=== PATIENT | male | born 1935 | race Caucasian/White ===

== ENCOUNTER 2016-06-28 14:31 | Inpatient (IN) | payer OTHER ==
[~2016-06-28] VITALS: Ht 180.3 cm; Wt 116.3 kg
--- NOTE | ~2016-06-28 | EKG ---
[address] [address] ELECTROCARDIOGRAM REPORT Name: TEAGAN HALL Room #: 458-P ADM IN M.R.#: [id number] Admission: 06/28/16 Attend Phys: Jamel Recio DO Discharge: Date of : 39 Report #: [id number] THIS REPORT FOR: //name// [facility] Test Date: 2016-06-29 Test Time: 14:42:36 Pat Name: TEAGAN HALL Department: Room: 458 P Gender: M Motion Picture Camera Operator: Alexsander MONREAL : 1935 Requested By: Sulma Sanz Order Number: [id number] MD: Harris Casey Measurements Intervals [place] Rate: 110 P: SD: QRS: 78 QRSD: 95 T: 26 QT: 355 QTc: 481 Interpretive Statements Atrial flutter Poor R wave progression nonspecific ST and T wave abnormality No previous ECG available for comparison Electronically Signed On 06-30-2016 9:25:49 AIRCRAFT AVIONICS TECHNICIAN by Harris Casey [email or web address] <ELECTRONICALLY SIGNED> By: Harris Casey MD, [facility] 06/30/16 0925 144 144 Harris Casey MD, FACC /EPI
[~2016-06-28 14:31] MED LIST: ACCUNEB SO1.25 MG/1 INH; ADVAIR 500-501 EACH INH; ADVAIRDISKUS; ALBUTEROL2.5 MG/31; ATIVAN1 MG PO; CARDIZEM; CARDIZEM CD120 MG PO; CARDURA4 MG PO; COLCHICINE0.6 MG PO; COMBIVENT; COMBIVENT RESPIM4 GM INH; COUMADIN; COUMADIN 3 MG TA3 M1 PO; COUMADIN 3 MG TA3 MG; COUMADIN 4 MG TA4 M1 PO; COUMADIN 5 MG TA5 M1 PO; COZAAR 50 MG TA50 M2 PO; DIOVAN; DIOVAN320 MG; DUONEB 2.5-0.5 M3 ML INH; FENTANYL PA25 MCG/HR TRANSDERM; FUROSEMIDE; HYDROCODON-ACE1 EAC1; HYDROCODON-ACE1 EACH; HYDROCODONE-AP1 EAC6 PO; IRON325 PO; LASIX 40 MG TAB40 M2 PO; LEVAQUIN 750 M750 MG PO; LOSARTAN; LOSARTAN POTAS100 MG PO; MIRALAX17 GM PO; NORCO 5-325 TA1 EACH PO; NORFLEX100 MG PO; PERCOCET 5-3251 EACH PO; PERCOCET PO; PRAVACHOL20 MG PO; PRAVASTATIN SOD20 MG PO; PREDNISONE; PREDNISONE 10 M10 M1 PO; PREDNISONE 20 M20 MG PO; PREDNISONE 5 MG5 M1 PO; PREDNISONE50 MG PO; PRILOSEC; PRILOSEC20 MG PO; PROBENECID500 MG PO; SENNA8.6 MG PO; SLOW-MAG64 M1 PO; TYLENOL325 MG PO; ULORIC40 MG PO; ZOCOR
[2016-06-28 15:21] VITALS: BP 141/74
[2016-06-28 18:47] LABS: HEMATOCRIT 41.7 % (42.0-52.0); HEMOGLOBIN 13.9 gm/dL (14.0-18.0); MCH 30.7 pg (26.0-34.0); MCHC 33.4 % (28.0-37.0); MCV 92.1 fL (80.0-100.0); PLATELET COUNT 167 thou/uL (150-400); RBC 4.53 mil/uL (4.50-6.00); RDW 13.9 % (10.5-14.5); WBC 6.5 thou/uL (4.0-11.0)
[2016-06-28 18:52] LABS: CALCIUM 9.2 mg/dL (8.5-10.1); CREATININE 1.3 mg/dL (0.6-1.3); POTASSIUM 4.6 mmol/L (3.5-5.1)
[2016-06-28 18:54] LABS: MANUAL DIFF YES
[2016-06-28 19:26] LABS: ABSOLUTE NEUTROPHILS 4.7 thou/uL (1.4-8.2); ANISOCYTOSIS 1+; TOTAL CELL COUNT 100
[2016-06-28 19:27] LABS: POLYCHROMASIA OCCASIONAL
[2016-06-28 19:42] VITALS: BP 142/69
[2016-06-29 04:39] VITALS: BP 152/53
[2016-06-29 07:45] VITALS: BP 170/82
[2016-06-29 12:00] VITALS: BP 138/66
[2016-06-29 16:00] VITALS: BP 153/72
[2016-06-29 20:00] VITALS: BP 153/68
[2016-06-30 04:00] VITALS: BP 156/74
[2016-06-30 07:32] VITALS: BP 141/71
[2016-06-30 11:24] VITALS: BP 110/73
[2016-06-30 16:26] VITALS: BP 152/70
[2016-06-30 20:31] VITALS: BP 147/57
[2016-07-01 04:10] VITALS: BP 146/58
[2016-07-01 07:23] VITALS: BP 141/81
[2016-07-01 11:20] VITALS: BP 150/84
[2016-07-01 15:49] VITALS: BP 152/71
[2016-07-01 18:40] LABS: INR 3.1; PROTIME 32.6 Seconds (9.3-11.4)
[2016-07-01 20:12] VITALS: BP 140/87
[2016-07-02 04:04] VITALS: BP 144/59
[2016-07-02 07:07] LABS: HEMATOCRIT 41.5 % (42.0-52.0); HEMOGLOBIN 13.4 gm/dL (14.0-18.0); MCH 30.3 pg (26.0-34.0); MCHC 32.3 % (28.0-37.0); MCV 93.8 fL (80.0-100.0); RBC 4.43 mil/uL (4.50-6.00); RDW 13.8 % (10.5-14.5); WBC 12.5 thou/uL (4.0-11.0)
[2016-07-02 07:18] LABS: ALBUMIN 3.8 g/dL (3.4-5.0); CALCIUM 8.8 mg/dL (8.5-10.1); CREATININE 1.5 mg/dL (0.6-1.3); MAGNESIUM 1.8 mg/dL (1.8-2.4); TOTAL BILIRUBIN 0.4 mg/dL (<0.1-1.0)
[2016-07-02 08:00] VITALS: BP 135/59
[2016-07-02 15:02] VITALS: BP 144/59
== END 2016-07-02 16:15 | disposition home or self-care (01) | DRG 177 ==
LOC: 4W 14:31
PROVIDERS: Family Medicine; Nurse Practitioner Family
DX: J69.0 Pneumonitis due to inhalation of food and vomit (principal); J96.01 Acute respiratory failure with hypoxia; J44.0 Chronic obstructive pulmonary disease with (acute) lower respiratory infection; J44.1 Chronic obstructive pulmonary disease with (acute) exacerbation; I48.91 Unspecified atrial fibrillation; I10 Essential (primary) hypertension; K21.9 Gastro-esophageal reflux disease without esophagitis; M10.9 Gout, unspecified; K59.00 Constipation, unspecified; F19.980 Other psychoactive substance use, unspecified with psychoactive substance-induced anxiety disorder; E78.5 Hyperlipidemia, unspecified; J45.909 Unspecified asthma, uncomplicated; E66.9 Obesity, unspecified; Z68.35 Body mass index [BMI] 35.0-35.9, adult; Z79.2 Long term (current) use of antibiotics; Z88.8 Allergy status to other drugs, medicaments and biological substances; Z87.891 Personal history of nicotine dependence; Z79.899 Other long term (current) drug therapy; Z98.49 Cataract extraction status, unspecified eye
CPT/HCPCS: 10045

== ENCOUNTER → 2019-03-10 | Outpatient (CLI) | payer OTHER | LOC: ULTRA 11:06 | DX: N63.10 Unspecified lump in the right breast, unspecified quadrant (principal) ==

== ENCOUNTER → 2020-06-24 | Outpatient (CLI) | payer OTHER ==
[~2020-06-24] MED LIST changes: +COMBIVENT INH; +WARFARIN SODIUM4 MG PO
== END ==
LOC: LAB 07:46
PROVIDERS: ATTEND Internal Medicine Gastroenterology
DX: Z01.812 Encounter for preprocedural laboratory examination (principal); Z20.822 Contact with and (suspected) exposure to COVID-19

== ENCOUNTER → 2020-06-29 | Outpatient (CLI) | payer OTHER ==
[~2020-06-29] VITALS: Ht 180.3 cm; Wt 68.0 kg
--- NOTE | 2020-07-01 16:06 | PATH ---
[facility] [address] [place] [address] PATHOLOGY RPT PROCEDURE Name: TEAGAN HALL Room #: REG Anette Bell.#: [id number] Admission: 06/29/20 Date of : 39 Discharge: Report #: [id number] Path Case #: [id number] LCA Accession Number: [id number] . 01 Material submitted: . PART A: gastrointestinal site - BX DUODENAL R/O CELIAC PART B: gastrointestinal site - BX ANTRUM R/O H.PYLORI PART C: gastrointestinal site - BX CECAL POLYP PART D: gastrointestinal site - BX ASCENDING POLYP X3 PART E: colon - BX SPLENIC FLEXURE X5 PART F: gastrointestinal site - BX RECTAL POLYP . 01 Clinical history: . DTS/EDG AND COLONOSCOPY ANEMIA;WEIGHT LOSS . 02 Diagnosis: A. Small bowel mucosa, duodenum R/O celiac, endoscopic biopsy: - No diagnostic abnormalities. - Negative for villous blunting or increase in intraepithelial lymphocytes. . B. Gastric mucosa, antrum, endoscopic biopsy: - Moderate reactive gastropathy. - Negative for intestinal metaplasia or atrophy. - Negative for Helicobacter pylori (properly controlled immunohistochemical stain performed). . C. Polyp, cecal polyp, endoscopic biopsy: - Tubular adenoma. - Negative for high-grade dysplasia. . D. Polyp x3, ascending colon polyp, endoscopic biopsy: - Multiple fragments showing tubular adenoma. - Negative for high-grade dysplasia. . E. Polyp x5, splenic flexure, endoscopic biopsy: - Tubular adenoma identified in multiple fragments; negative for high-grade dysplasia. - Two fragments showing hyperplastic polyp without any dysplasia. . F. Polyp, rectal polyp, endoscopic biopsy: - Hyperplastic polyp. - Negative for dysplasia. (IUV:radha; 07/01/2020) QMS 07/01/2020 1312 Local . [address] [address] PATHOLOGY RPT PROCEDURE Name: TEAGAN HALL Room #: REG CLI MJaspreet#: [id number] Admission: 06/29/20 Date of : 39 Discharge: Report #: [id number] Path Case #: [id number] Electronically signed: . Monisha Curtis MD, Pathologist NPI- [id number] . 01 Gross description: . A. The specimen is received in formalin, labeled "hannah Bhakta duodenal, R/O celiac". Received is a segment of pale carpio soft tissue measuring 0.5 cm in maximum dimensions. The specimen is submitted entirely in cassette A1. . B. The specimen is received in formalin, labeled "Teagan Hall, biopsy antrum, R/O H. pylori". Received is a segment of pale carpio soft tissue measuring 0.5 cm in maximum dimensions. The specimen is submitted entirely in cassette B1. . C. The specimen is received in formalin, labeled "Teagan Hall, biopsy cecal polyp". Received are two segments of pale carpio soft tissue measuring 0.6 cm each in maximum dimensions. The specimen is submitted entirely in cassette C1. . D. The specimen is received in formalin, labeled "Teagan Hall, ascending colon polyp x3". Received are three segments of pale carpio soft tissue ranging in size from 0.5 to 0.7 cm in maximum dimensions. The specimen is submitted entirely in cassette D1. . E. The specimen is received in formalin, labeled "Teagan Hall, biopsy splenic flexure x5". Received are five segments of pale carpio soft tissue ranging in size from 0.3 to 0.8 cm in maximum dimensions. The surgical margin of the larger segment is inked and the segment is bisected. The specimen is submitted entirely in cassette E1. . F. The specimen is received in formalin, labeled "Teagan Hall, biopsy rectal polyp". Received is a segment of pale carpio soft tissue measuring 0.3 cm in maximum dimensions. The specimen is submitted entirely in cassette F1. (CAA; 06/30/2020) QA/QA 06/30/2020 1042 Local . 02 Pathologist provided ICD-10: K31.9, D12.0, D12.2, D12.3, K62.1, Z12.11 . 02 CPT . 649829, 384349, 677416, 003725, 793968, 294832, O18306 Specimen Comment: A courtesy copy of this report has been sent to [phone] Specimen Comment: Report sent to Performed at: [address], [place], [place] [id number] [address] [address] PATHOLOGY RPT PROCEDURE Name: TEAGAN HALL Room #: REG CLI M.R.#: [id number] Admission: 06/29/20 Date of : 39 Discharge: Report #: [id number] Path Case #: [id number] MD Froilan Borges MD Phone: [phone] Performed at: [address] [id number] MD Monisha Curtis MD Phone: [phone]
== END | disposition home or self-care (01) ==
LOC: GI 07:56
PROVIDERS: ATTEND Internal Medicine Gastroenterology
DX: R63.4 Abnormal weight loss (principal); D12.0 Benign neoplasm of cecum; D12.2 Benign neoplasm of ascending colon; D12.3 Benign neoplasm of transverse colon; K62.1 Rectal polyp; K31.9 Disease of stomach and duodenum, unspecified; K57.30 Diverticulosis of large intestine without perforation or abscess without bleeding; K64.8 Other hemorrhoids; R12 Heartburn; K29.70 Gastritis, unspecified, without bleeding; K22.2 Esophageal obstruction; K44.9 Diaphragmatic hernia without obstruction or gangrene; I10 Essential (primary) hypertension; I48.91 Unspecified atrial fibrillation; J45.909 Unspecified asthma, uncomplicated; K21.9 Gastro-esophageal reflux disease without esophagitis; D64.9 Anemia, unspecified; Z98.890 Other specified postprocedural states; Z79.899 Other long term (current) drug therapy; Z87.891 Personal history of nicotine dependence
CPT/HCPCS: 62110; 62900

== ENCOUNTER 2020-08-09 09:21 | Inpatient (IN) | payer OTHER ==
[~2020-08-09] VITALS: Ht 152.4 cm; Wt 76.7 kg
[2020-08-09 09:22] VITALS: BP 130/57
[2020-08-09 10:45] LABS: URINE BILIRUBIN NEGATIVE (Negative); URINE BLOOD NEGATIVE (Negative); URINE CLARITY CLEAR; URINE COLOR YELLOW; URINE GLUCOSE-RANDOM* NEGATIVE (Negative); URINE KETONES NEGATIVE (Negative); URINE LEUKOCYTES-REFLEX NEGATIVE (Negative); URINE NITRITE-REFLEX NEGATIVE (Negative); URINE PROTEIN (DIPSTICK) NEGATIVE (Negative); URINE UROBILINOGEN 0.2 E.U./dl (0.2-1.0)
[2020-08-09 10:46] LABS: HEMATOCRIT 23.3 % (42.0-52.0); HEMOGLOBIN 7.8 gm/dL (14.0-18.0); MCH 32.1 pg (26.0-34.0); MCHC 33.4 g/dL (28.0-37.0); MCV 96.2 fL (80.0-100.0); PLATELET COUNT 301 thou/uL (150-400); RBC 2.42 mil/uL (4.50-6.00); WBC 8.9 thou/uL (4.0-11.0)
[2020-08-09 10:59] LABS: ANION GAP 8 mmol/L (7-16); BUN 18 mg/dL (7-18); CALCIUM 8.1 mg/dL (8.5-10.1); CHLORIDE 105 mmol/L (98-107); CO2 25 mmol/L (21-32); CREATININE 1.2 mg/dL (0.7-1.3); GLUCOSE 101 mg/dL (74-106); SODIUM 138 mmol/L (136-145)
[2020-08-09 11:10] LABS: ALBUMIN 2.6 g/dL (3.4-5.0); LIPASE 165 U/L (73-393); SGOT 17 U/L (15-37); SGPT 10 U/L (30-65); TOTAL BILIRUBIN 0.8 mg/dL (0.2-1.0); TOTAL PROTEIN 5.4 g/dL (6.4-8.2); TROPONIN-I <0.06 ng/mL (<0.06)
[2020-08-09 11:11] LABS: ABSOLUTE NEUTROPHILS 3.2 thou/uL (1.4-8.2); PLATELET ESTIMATE NORMAL
[2020-08-09 12:09] LABS: PROTIME 85.6 Seconds (9.3-11.4)
[2020-08-09 12:14] LABS: INR > 8.0
[2020-08-09 13:58] VITALS: BP 149/73
[2020-08-09 14:20] VITALS: BP 149/73
--- NOTE | 2020-08-09 15:57 | EKG ---
[address] [place] [address] ELECTROCARDIOGRAM REPORT Name: TEAGAN HALL Room #: 458-P ADM IN M.R.#: [id number] Admission: 08/09/20 Attend Phys: Jackie Vivar Discharge: Date of : 39 Report #: [id number] [facility] ED Test Date: 2020-08-09 Test Time: 10:33:14 Pat Name: TEAGAN HALL Department: Room: 458 Gender: M Sack Keeper: sathya : 1935 Requested By: Alberto Montano Order Number: [id number] MD: Omi Payan Measurements Intervals [place] Rate: 98 P: MA: QRS: 68 QRSD: 134 T: -4 QT: 419 QTc: 536 Interpretive Statements Atrial fibrillation Right bundle branch block Compared to ECG 06/29/2016 14:42:36 Right bundle-branch block now present Atrial flutter no longer present Poor R-wave progression no longer present ST (T wave) deviation no longer present Electronically Signed On 08-09-2020 15:57:32 JEWEL HOLE GAUGER by Omi Payan [email or web address] <ELECTRONICALLY SIGNED> By: Omi Payan MD, [facility] 08/09/20 1557 1033 1033 Omi Payan MD, [facility] /EPI
[2020-08-09 16:13] VITALS: BP 129/51
--- NOTE | 2020-08-09 19:23 | NUR ---
PT ARRIVED TO FLOOR FROMED AROUND 1500 IN STABLE CONDITION. ADMISSION HX, ASSESMENT,AND CARE PLAN COMPLETED WITH SOME OF THE QUESTIONS ANSWERED BY PT'S . PT WAS PLACED ON BOBTAILER. BOX LUNCH GIVEN AND WELL TOLERATED BY THE PT. PT'S DAUGHTER CALLED, BUT UNABLE TO HELP HER BECAUSE SHE DIDN'T HAVE A CODE NUMBER.PT IN BED RESTING AT PRESENT AND REPORT GIVEN TO SHREE RANGEL.
[2020-08-09 21:44] VITALS: BP 125/66
[2020-08-10 04:58] LABS: HEMATOCRIT 28.1 % (42.0-52.0); HEMOGLOBIN 9.1 gm/dL (14.0-18.0); MCH 31.7 pg (26.0-34.0); MCHC 32.5 g/dL (28.0-37.0); MCV 97.5 fL (80.0-100.0); RBC 2.88 mil/uL (4.50-6.00); RDW 16.4 % (10.5-14.5)
[2020-08-10 05:01] VITALS: BP 149/73
[2020-08-10 05:01] LABS: PROTIME 17.6 Seconds (9.3-11.4)
[2020-08-10 05:27] LABS: INR 1.7
[2020-08-10 08:15] VITALS: BP 148/68
[2020-08-10] MEDS ORDERED: BENADRYL ALLERG25 MG PO (10:53)
[2020-08-10 11:28] VITALS: BP 148/68
--- NOTE | 2020-08-10 12:18 | NUR ---
Assumed pt care at 7am.Pt in bed very restless and itching at alltimes. Repositioned pt in bed for comfort and benadryl iv and topical given as ordered.Assessment completed. vss.Dr Vivar here,dc order noted.Received call from pt's dtr,she wanted to discuss pt care optior with doctor prior to dc home today.Dr Vivar notified and he called pt dtr.Few minutes later,received call from Dr Vivar and jack pt to dc home after lyme disease serology draw. Pt and his notified.Dc summary completed and reviewed with pt and . Pt will be dc home after lunch.
--- NOTE | 2020-08-10 14:47 | NUR ---
PT ADMITTED RELATED TO ANEMIA,INCREASED INR. CM REVIEWED CHART AND SPOKE WITH CARE TEAM. CM MET WITH PT AT BEDSIDE THIS DAY. PT APPEARED TO BE A&O X4. CM ROLE INTRODUCED. PT INDICATED HE RESIDES IN A HOUSE WITH HIS WITH STAIR LIFTS. PT INDICATED HE HAD USED A CANE TO ASSIST WITH MOBILITY POMOLOGIST. PT INDICATED HE PLANS TO RETURN HOME ONCE MEDICALLY STABLE. CARE TEAM INDICATED THAT PT IS MEDICALLY STABLE TO DC HOME THIS DAY TO SELF CARE. PT'S SPOUSE TO PROVIDE TRNASPORT HOME. NO OTHER CM INTERVENTION INDICATED. CASE CLOSED.
[2020-08-11 18:06] LABS: LYME ANTIBODY SCREEN* <0.91 ISR (0.00-0.90)
== END 2020-08-10 13:35 | disposition home or self-care (01) | DRG 813 ==
LOC: ER 09:21 → 4W 13:52 → EROBS 13:52 → 4W 14:20
PROVIDERS: Emergency Medicine; ADMIT Hospitalist; ATTEND Hospitalist
DX: D68.9 Coagulation defect, unspecified (principal); E44.1 Mild protein-calorie malnutrition; L30.9 Dermatitis, unspecified; G89.29 Other chronic pain; I10 Essential (primary) hypertension; D64.9 Anemia, unspecified; J45.909 Unspecified asthma, uncomplicated; I48.91 Unspecified atrial fibrillation; R07.9 Chest pain, unspecified; K21.9 Gastro-esophageal reflux disease without esophagitis; Z79.01 Long term (current) use of anticoagulants; Z79.899 Other long term (current) drug therapy; Z88.8 Allergy status to other drugs, medicaments and biological substances; Z87.891 Personal history of nicotine dependence
CPT/HCPCS: 10047

== ENCOUNTER → 2020-10-21 | Outpatient (CLI) | payer OTHER ==
[~2020-10-21] MED LIST changes: +BENADRYL ALLERG25 MG PO
--- NOTE | 2020-10-29 11:04 | PATH ---
[facility] [address] [place] [address] PATHOLOGY RPT PROCEDURE Name: TEAGAN HALL Room #: REG CLAnette Bell.#: [id number] Admission: 10/21/20 Date of : 39 Discharge: Report #: [id number] Path Case #: [id number] LCA Accession Number: [id number] . 01 Material submitted: . lymph node - RIGHT INGUINAL LYMPH NODE BIOPSY. Modifiers: right, inguinal . 01 Clinical history: . RPMI ALLERGIC TO LISINOPRIL,ALLOPURINOL . 02 Diagnosis: Lymph node, right inguinal lymph node, needle core biopsy: - Findings compatible with a benign reactive lymph node, see comment. . (IUV:mml; 10/26/2020) QLM 10/26/2020 1553 Local . 02 Comment: Examination shows a needle core biopsy tissue with lymphoid follicles, germinal centers as well as fibrovascular connective tissue (comprises approximately 50% of the sampled tissue). Portion of this sample was sent to flow cytometric analysis which showed no specific lymphoid immunophenotypic abnormalities. A minute portion of CD10+ B-cells comprising approximately (1.6%) was noted. Analysis for B-cell light chains on those cells demonstrated polyclonality. Morphologically, the lymphoid cells appear small, no atypical markedly enlarged lymphoid cells, or Duy-Deb cells are identified. To further characterize the lymphoid cells in a tissue architectural context, multiple properly-controlled immunohistochemical stains are performed on block A1 and interpreted as follows: . CD20 - Reactive within B-cells in the germinal centers as well as the mantle zones CD3 - Reactive within the T-cells and interfollicular regions CD5 - Reactive within the T-cells in the interfollicular regions CD10 - Reactive within the B-cells in the germinal centers PAX-5 - Reactive within the B-cells in the germinal centers as well as the mantle zones BCL-6 - Reactive within the lymphocytes in the germinal centers BCL-2 - Germinal center/follicles are non-reactive CD23 - Reactive within the dendritic cell meshwork in the germinal centers MUM1 - Reactive within the scattered rare plasma cells Cyclin D1 - Non-reactive within the B-cells CD68 - Non-reactive . . [facility] [address] [place] [address] PATHOLOGY RPT PROCEDURE Name: TEAGAN HALL Room #: REG Anette Olivera#: [id number] Admission: 10/21/20 Date of : 39 Discharge: Report #: [id number] Path Case #: [id number] The immunohistochemical stains support a benign reactive lymph node. Please note sample may not be entirely cash applications representative; correlate clinically and follow up as indicated. . Dr. Santiago Messina has seen this case and concurs with my diagnosis. . (IUV:mml; 10/26/2020) . 02 Addendum: . Special studies report received from [facility], [address] [place] [address], [address], [place], [address], on case [id number], labeled with their number [id number], dated 10/25/2020. . Flow Cytometry: Hematologic Neoplasia Assessment . Clinical History . . Indication for Study Evaluation for hematolymphoid neoplasia . Specimen Tissue, Rt Inguinal LN . Viability 67% (7AAD exclusion) . Interpretation Tissue, Rt Inguinal LN: - No specific lymphoid immunophenotypic abnormalities detected - Elevated CD4/CD8 ratio (8.8:1), phenotypically unremarkable . Comments No immunophenotypic evidence of non-Hodgkin lymphoma, blastic cells or plasmacytoma is detected in this analysis. The only note worthy finding is the detection of a small population of CD10+ B-cells (1.6%). Analysis for B-cell light chains (surface and cytoplasmic) on these cells demonstrates evidence consistent with polyclonality. Some large cell lymphomas are prone to rapid degeneration which can render such lesions undetectable by flow cytometry. Also, Hodgkin lymphoma, some T cell lymphomas, and T-cell-rich B-cell lymphoma may not be detectable by flow cytometry. A thorough clinical, histologic and immunohistochemical correlation is recommended for full exclusion of non-hematolymphoid cellular processes, atypical lymphoid reactions, granulomatous disease or Hodgkin lymphoma. . Populations Analyzed Lymphocytes: 59% B-cells: 6.3%, polytypic/polyclonal sIg light chain [facility] [address] [place] [address] PATHOLOGY RPT PROCEDURE Name: TEAGAN HALL Room #: REG FARHEEN Olivera#: [id number] Admission: 10/21/20 Date of : 39 Discharge: Report #: [id number] Path Case #: [id number] pattern K/L= !.8:1). A small population of CD10+ B-cells (1.6%) is present. Analysis for B-cell light chains (surface and cytoplasmic) on these cells demonstrates evidence consistent with polyclonality T-cells: no significant abnormalities of the markers tested CD4:CD8: 8.8:1 (elevated) without increased CD38 NK cells: 0.8% Granulocytes: 3% Present and phenotypically mature neutrophils with approximately 2.1% eosinophils Monocytes/ 1% Present and phenotypically unremarkable for the Histiocytes: markers tested CD45 Negative 36% No significant reactivity with the markers tested Events/Debris: (may represent non-hematolymphoid cells, degenerated cells, debris, unlysed red blood cells, etc.) . Morphologic Evaluation A slide was reviewed for quality controller purposes only. . Specimen Description Cell Yield: 0.41 x 10 and 6 Viability is 67%. Flow cytometric data derived from samples with <80% viability needs to be interpreted within the context of all clinical, laboratory, and morphologic data available. . Pertinent Prior Test Results Received Date Test Type Specimen Type Result 06/18/2019 Flow Cytometry Tissue Result Number: [id number] Left Biceps: - No immunophenotypic evidence of a non Hodgkin B-cell or a T-cell lymphoma in a sample with markedly decreased viability (51%). See comments. . Reagent(s) Used CD2, CD3, CD4, CD5, CD7, CD8, CD10, CD11b, CD19, CD20, CD23, CD30, CD38, CD43, CD45, CD56, CD57, FMC-7, HLA-DR, kappa, lambda, CytoKappa, CytoLambda . at [employer] Sergio Butterfield MD Pathologist . . Intended Use [facility] [address] [place] [address] PATHOLOGY RPT PROCEDURE Name: TEAGAN HALL Room #: REG [facility].#: [id number] Admission: 10/21/20 Date of : 39 Discharge: Report #: [id number] Path Case #: [id number] Flow cytometry is optimally used to immunophenotypically characterize abnormal populations when they are detected. Negative flow cytometry results do not exclude lymphoma or neoplasia. Possible false negative flow cytometry results may occur in, but are not limited to, the following: neoplastic cells in Hodgkin lymphoma are not typically adequately represented by routine clinical flow cytometry; neoplastic cells may be lost or inadequately represented due to degeneration, sample processing, sampling artifact, or patchy involvement; plasma cells are typically underrepresented by flow cytometry; immature cells/blasts may be underrepresented due to hemodilution; myeloproliferative disorders and low grade myelodysplasia may not have immunophenotypic abnormalities or increased blasts. Correlation with all available clinical, laboratory, and morphologic data is always necessary to assess for the possibility of false negative flow cytometry results and to establish a diagnosis. Each marker in this analysis was used to assess for potential antigenic abnormalities or to evaluate detected abnormalities. . Any image or images that accompany this report are cash applications representative images only and should not be used to render a diagnosis. . Disclaimer(s) This test was developed and its performance characteristics determined by [employer] It has not been cleared or approved by the Food and Drug Administration. . [facility] is a business unit of [email or web address] a wholly-owned subsidiary of [employer]. . This test was performed at [facility]. at [address], [place], [address] - Computer Specialist: Kenan Poe MD. . For inquiries, the physician may contact Lab: [phone] . A complete copy of the report is on file. . Professional services performed by [facility]. at [address], [place] [address]. Technical services performed by [facility]. at [address], [place] [address]. . (IUV:amj 10/26/2020) . AZJ/10/28/2020 Addendum Electronically Signed by Monisha Curtis MD, Pathologist . [address] [address] PATHOLOGY RPT PROCEDURE Name: TEAGAN HALL Room #: REG CL Joselin#: [id number] Admission: 10/21/20 Date of : 39 Discharge: Report #: [id number] Path Case #: [id number] Electronically signed: . Monisha Curtis MD, Pathologist NPI- [id number] . 01 Gross description: . Received in formalin labeled "Teagan Hall and right inguinal node biopsy". Received are 2 lymph node core biopsies ranging from 1.0-1.0 cm in length and 0.1 cm in diameter. The specimen is entirely submitted in cassette A1.(J; 10/21/2020) BLJ/BLJ 10/21/2020 1936 Local . 02 Pathologist provided ICD-10: Z03.89 . 02 CPT . 699278, A12267, I36236 Specimen Comment: A courtesy copy of this report has been sent to [phone] Specimen Comment: Report sent to DR CURTIS / DR BERUMEN Specimen Comment: A duplicate report has been generated due to demographic updates. Performed at: [address], [place] [id number] MD Froilan Borges MD Phone: [phone] Performed at: [address] [id number] MD Monisha Curtis MD Phone: [phone]
== END | disposition home or self-care (01) ==
LOC: ULTRA 12:52
PROVIDERS: ATTEND Radiology Vascular & Interventional Radiology
DX: R59.0 Localized enlarged lymph nodes (principal); N28.9 Disorder of kidney and ureter, unspecified; I48.91 Unspecified atrial fibrillation; M10.9 Gout, unspecified; E66.01 Morbid (severe) obesity due to excess calories; Z98.890 Other specified postprocedural states; Z79.899 Other long term (current) drug therapy; Z79.01 Long term (current) use of anticoagulants

== ENCOUNTER → 2021-03-31 | Outpatient (CLI) | payer OTHER | LOC: CAT 11:49 | PROVIDERS: ATTEND Pediatrics | DX: J43.9 Emphysema, unspecified (principal); R91.8 Other nonspecific abnormal finding of lung field; J90 Pleural effusion, not elsewhere classified; K74.60 Unspecified cirrhosis of liver; R18.8 Other ascites; I25.10 Atherosclerotic heart disease of native coronary artery without angina pectoris; M47.814 Spondylosis without myelopathy or radiculopathy, thoracic region ==

== ENCOUNTER → 2021-05-13 | Outpatient (CLI) | payer OTHER | LOC: PET 04-15 14:00 | PROVIDERS: ATTEND Pediatrics | DX: S22.31XA Fracture of one rib, right side, initial encounter for closed fracture (principal); R91.8 Other nonspecific abnormal finding of lung field; J90 Pleural effusion, not elsewhere classified; X58.XXXA Exposure to other specified factors, initial encounter; Y93.89 Activity, other specified; Y92.89 Other specified places as the place of occurrence of the external cause; Y99.8 Other external cause status ==

== ENCOUNTER → 2021-06-24 | Outpatient (CLI) | payer OTHER | LOC: CAT 13:42 | PROVIDERS: ATTEND Pediatrics | DX: S22.41XA Multiple fractures of ribs, right side, initial encounter for closed fracture (principal); R91.1 Solitary pulmonary nodule; J90 Pleural effusion, not elsewhere classified; J43.8 Other emphysema; R18.8 Other ascites; X58.XXXA Exposure to other specified factors, initial encounter; Y93.89 Activity, other specified; Y92.89 Other specified places as the place of occurrence of the external cause; Y99.8 Other external cause status ==

== ENCOUNTER → 2021-07-08 | Outpatient (CLI) | payer OTHER | LOC: CAT 14:10 | PROVIDERS: ATTEND Pediatrics | DX: S22.41XA Multiple fractures of ribs, right side, initial encounter for closed fracture (principal); J98.11 Atelectasis; R18.8 Other ascites; J90 Pleural effusion, not elsewhere classified; I51.7 Cardiomegaly; X58.XXXA Exposure to other specified factors, initial encounter; Y93.89 Activity, other specified; Y92.89 Other specified places as the place of occurrence of the external cause; Y99.8 Other external cause status ==

== ENCOUNTER → 2021-08-01 | Outpatient (CLI) | payer OTHER ==
[~2021-08-01] VITALS: Ht 180.3 cm; Wt 109.3 kg
[~2021-08-01] MED LIST changes: +ALLOPURINOL 30300 M1 PO; -COMBIVENT INH; +DILTIAZEM 24HR120 M1 PO; +DOXAZOSIN MESYLA4 MG PO; +FENTANYL1 EAC7 TRANSDERM; +FUROSEMIDE 40 M40 M1 PO; +NORCO7.5 PO; +OMEPRAZOLE 20 M20 M1 PO; +RAYOS5 MG PO; +WARFARIN SODIUM2 MG PO; +WIXELA 500-501 EACH INH
[2021-08-01 09:55] VITALS: BP 143/92
[2021-08-01 10:15] LABS: CREATININE 1.2 mg/dL (0.7-1.3); POTASSIUM 4.5 mmol/L (3.5-5.1)
[2021-08-01 10:17] LABS: INR 1.17; PROTIME 12.7 Seconds (10.5-12.1)
--- NOTE | 2021-08-01 10:44 | EKG ---
[place] [address] [facility] [place] [address] ELECTROCARDIOGRAM REPORT Name: TEAGAN HALL [facility] [id number] Admission: 08/01/21 Attend Phys: Tyson Song MD Discharge: Date of : 39 Report #: [id number] [facility] Test Date: 2021-08-01 Test Time: 10:27:28 Pat Name: TEAGAN HALL Department: Room: Gender: M Alliance Manager: KEIRY : 1935 Requested By: Monik Jacobs Order Number: [id number] MD: Omi Payan Measurements Intervals [place] Rate: 61 P: MS: QRS: 61 QRSD: 124 T: -8 QT: 444 QTc: 448 Interpretive Statements Atrial fibrillation IVCD, consider atypical RBBB Compared to ECG 08/09/2020 10:33:14 No significant changes Electronically Signed On 08-01-2021 10:44:27 CUPOLA MELTER HELPER by Omi Payan [email or web address] <ELECTRONICALLY SIGNED> By: Omi Payan MD, [facility] 08/01/21 1044 1027 1027 Omi Payna MD, FACC /EPI
[2021-08-01 11:08] LABS: HEMATOCRIT 31.3 % (42.0-52.0); MCH 32.5 pg (26.0-34.0); MCV 101.5 fL (80.0-100.0); RBC 3.08 mil/uL (4.50-6.00); RDW 16.4 % (10.5-14.5); WBC 5.9 thou/uL (4.0-11.0)
--- NOTE | 2021-08-05 11:22 | PATH ---
[facility] [address] [place] [address] PATHOLOGY RPT PROCEDURE Name: TEAGAN HALL Room #: REG FARHEEN Bell.#: [id number] Admission: 08/01/21 Date of : 39 Discharge: Report #: [id number] Path Case #: [id number] Note LCA Accession Number: [id number] TESTS RESULT FLAG UNITS REF RANGE LAB Clinician Provided Cytology Information No. of containers..01 Other (Miscellaneous) Source: BRUSH TIP RUL DIAGNOSIS: 02 BRUSH TIP RUL INCONCLUSIVE. SCANT CELLULARITY. RARE ATYPICAL CELLS IDENTIFIED. NORMAL BRONCHIAL CELLS ARE PRESENT. ABUNDANT RED BLOOD CELLS ARE PRESENT. Signed out by: 02 Neftali Yang MD, Pathologist NPI- [id number] Performed by: Shital Hernandez, Aircraft Armorer ([facility]) Gross description: 01 20ML, CLEAR, COLORLESS /LCS 08/02/2021 1700 Local FLAG LEGEND: L-Low Normal,H-High Normal,LL-Alert Low,HH-Alert High <-Panic Low,>-Panic High,A-Abnormal,AA-Critical Abnormal Performed at: [address] [place] [address] Froilan Borges MD, [address] [place] [address] Neftali Yang MD, Specimen Comment: A courtesy copy of this report has been sent to [phone] Specimen Comment: [phone] Specimen Comment: Report sent to / DR PETTY Performed at: [address], [place], [place] [id number] MD Froilan Borges MD Phone: [phone]
--- NOTE | 2021-08-05 14:07 | PATH ---
[facility] [address] [place] [address] PATHOLOGY RPT PROCEDURE Name: ISABELTEAGAN Room #: REG [facility] MCatherine.#: [id number] Admission: 08/01/21 Date of : 39 Discharge: Report #: [id number] Path Case #: [id number] LCA Accession Number: [id number] . 01 Material submitted: . lung - RUL BIOPSY. Modifiers: right, upper . 02 Diagnosis: Right upper lobe nodule, endobronchial biopsies: - Alveolated lung parenchyma with mild acute inflammation, hemorrhage, type II pneumocytes, and anthracotic pigmentation. - No definite malignancy identified. (ANK:pit; 08/03/2021) QTP 08/03/2021 1343 Local . 02 Comment: This case has been co-reviewed with Dr. Leidy Chery and Dr. Marysol Pérez who agree with my diagnosis on 08/04/2021. (ANK:pit; 08/03/2021) . 02 Electronically signed: . Dulce Card MD, Pathologist NPI- [id number] . 01 Gross description: . The specimen is submitted in formalin, labeled "right leg, Teagan, RUL tissue biopsy". Received are 2 needle cores of light carpio to dark carpio tissue ranging in length from 0.7 to 1.1 cm by 0.1 cm in diameter. The specimen is submitted entirely in cassettes A1 to A2. . Also received within the specimen container are 4 light carpio to dark carpio needle core fragments ranging from 0.2 cm to 0.3 cm in maximum dimension. The specimen is submitted entirely in cassette A3.([facility]; 08/02/2021) [facility] 08/02/2021 1320 Local . 02 Pathologist provided ICD-10: J18.9 . 02 CPT . 401574 Specimen Comment: A courtesy copy of this report has been sent to [phone] Specimen Comment: Report sent to Specimen Comment: A duplicate report has been generated due to demographic updates. Performed at: [address] [facility] [address], [place] [id number] [address] [address] PATHOLOGY RPT PROCEDURE Name: TEAGAN HALL Room #: [facility] [id number] Admission: 08/01/21 Date of : 39 Discharge: Report #: [id number] Path Case #: [id number] MD Froilan Borges MD Phone: [phone] Performed at: [address] [id number] MD Dulce Card MD Phone: [phone]
== END | disposition home or self-care (01) ==
LOC: PUL 08:39
PROVIDERS: Anesthesiology; ATTEND Pediatrics
DX: R91.8 Other nonspecific abnormal finding of lung field (principal); J18.9 Pneumonia, unspecified organism; J43.9 Emphysema, unspecified; I10 Essential (primary) hypertension; I48.91 Unspecified atrial fibrillation; K21.9 Gastro-esophageal reflux disease without esophagitis; Z98.890 Other specified postprocedural states; Z79.899 Other long term (current) drug therapy; Z20.822 Contact with and (suspected) exposure to COVID-19; Z87.891 Personal history of nicotine dependence; Z98.41 Cataract extraction status, right eye; Z98.42 Cataract extraction status, left eye; Z88.8 Allergy status to other drugs, medicaments and biological substances
CPT/HCPCS: 50010; 62110; 62900; 70005